=== PATIENT | female | born 1990 | race Caucasian/White ===

== ENCOUNTER 2020-09-13 20:17 | Emergency (ER) | payer MEDICAID ==
[~2020-09-13] VITALS: Ht 175.3 cm; Wt 90.0 kg
[2020-09-13 20:23] VITALS: Ht 175.3 cm; Wt 90.0 kg
[2020-09-13 22:09] VITALS: BP 129/75
== END 2020-09-13 22:09 | disposition home or self-care (01) ==
LOC: D.ER 20:17
DX: R51.9 Headache, unspecified (principal); Z63.4 Disappearance and death of family member; Z72.820 Sleep deprivation; H53.8 Other visual disturbances